=== PATIENT | male | born 1985 | race Hispanic/Latino ===

== ENCOUNTER 2021-07-05 15:44 | Emergency (ER) | payer BC ==
[~2021-07-05] VITALS: Ht 170.2 cm; Wt 78.9 kg
[2021-07-05] MEDS ORDERED: CASIRIVIMAB/IMDEVIMAB 10 ML VIAL IV ONE (16:00)
[2021-07-05] MEDS ORDERED: CASIRIVIMAB/IMDEVIMAB 600 ML in SODIUM CHLORIDE 0.9% 100 ML IV ONE (16:30)
[2021-07-05 18:28] VITALS: BP 133/80
== END 2021-07-05 17:30 | disposition home or self-care (01) ==
LOC: ER 16:34
DX: R50.9 Fever, unspecified (principal); R05 Cough; U07.1 COVID-19; R51.9 Headache, unspecified; E11.9 Type 2 diabetes mellitus without complications
CPT/HCPCS: 99283